=== PATIENT | female | born 1965 | race Caucasian/White ===

== ENCOUNTER → 2020-02-18 | Outpatient (CLI) | payer BC ==
[~2020-02-18] MED LIST: INVANZ INJ1 G/VIAL IV; PAXIL 10MG10 MG PO
== END ==
LOC: MC.RAD 01-21 15:45
DX: Z12.31 Encounter for screening mammogram for malignant neoplasm of breast (principal)

== ENCOUNTER → 2020-02-18 | Outpatient (CLI) | payer BC | LOC: COL.RAD 07:30 | DX: R94.5 Abnormal results of liver function studies (principal); Z90.49 Acquired absence of other specified parts of digestive tract ==

== ENCOUNTER → 2021-03-12 | Outpatient (CLI) | payer OTHER | LOC: MC.RAD 08:18 | DX: Z12.31 Encounter for screening mammogram for malignant neoplasm of breast (principal) ==

== ENCOUNTER → 2023-07-21 | Outpatient (CLI) | payer OTHER | LOC: COL.RAD 08:02 | DX: M51.34 Other intervertebral disc degeneration, thoracic region (principal); M47.816 Spondylosis without myelopathy or radiculopathy, lumbar region ==

== ENCOUNTER 2023-08-04 13:00 | Outpatient (RCR) | payer OTHER | END 2023-08-06 | disposition home or self-care (01) | LOC: PT.GENESIS | DX: M54.40 Lumbago with sciatica, unspecified side (principal) ==

== ENCOUNTER 2023-09-29 13:45 | Outpatient (RCR) | payer OTHER | END 2023-10-06 | LOC: PT.GENESIS | DX: M54.40 Lumbago with sciatica, unspecified side (principal) ==

== ENCOUNTER → 2024-02-09 | Outpatient (CLI) | payer OTHER ==
[2024-02-09 07:53] LABS: BASO # 0.1 K/mm3 (0.0-0.2); BASO % 1.4 % (0.0-2.0); EOS # 0.1 K/mm3 (0.0-0.7); EOS % 1.9 % (0.0-4.0); GRAN # 1.4 K/mm3 (1.4-6.5); HEMATOCRIT 37.2 % (37.0-47.0); HEMOGLOBIN 12.5 g/dl (12.5-16.0); LYMPH # 1.8 K/mm3 (1.2-3.4); LYMPH % 48.9 % (20.0-51.0); MEAN CELL VOLUME 93 fl (80.0-100.0); MEAN CORPUSCULAR HEMOGLOBIN 31 pg (27-31); MEAN CORPUSCULAR HGB CONC 34 g/dl (33.0-37.0); MEAN PLATELET VOLUME 11.2 fl (7.4-10.4); MONO # 0.3 K/mm3 (0.1-0.6); MONO % 7.8 % (1.7-9.3); PLATELET COUNT 183 K/mm3 (130-400); REDCELL DISTRIBUTION WIDTH-CV 12.3 % (11.5-14.5)
[2024-02-09 08:29] LABS: ALBUMIN 3.9 g/dL (3.4-4.8); BILIRUBIN,TOTAL 0.6 mg/dL (0.2-1.2); CALCIUM 9.8 mg/dL (8.4-10.2); CREATININE, serum 0.87 mg/dL (0.57-1.11); POTASSIUM 4.6 mEq/L (3.5-4.5); TOTAL PROTEIN 7.1 g/dl (6.2-8.1)
== END ==
LOC: COL.LAB 07:03
PROVIDERS: Family Medicine
DX: Z00.00 Encounter for general adult medical examination without abnormal findings (principal)

== ENCOUNTER 2024-02-26 08:23 | Day surgery (SDC) | payer OTHER ==
[~2024-02-26] VITALS: Ht 160 cm; Wt 52.8 kg
[~2024-02-26 08:23] MED LIST changes: +LR 1,000 ML IV SCH; +Ondansetron 4 MG/2 ML VIAL IV PRN
[2024-02-26] MEDS ORDERED: MIRTAZAPINE7.5 MG PO (09:16)
[2024-02-26] MEDS ORDERED: LIPITOR20 MG PO (09:16)
[2024-02-26] MEDS ORDERED: PAXIL 10MG10 MG PO (09:17)
[2024-02-26] MEDS ORDERED: PROLIA60 MG/ML SQ (09:18)
[2024-02-26] MEDS ORDERED: GAS RELIEF125 MG PO (09:19)
[2024-02-26] MEDS ORDERED: Lidocaine PF 2% (20 MG/ML) 5 ML VIAL ONE (09:22)
[2024-02-26] MEDS ORDERED: PRILOSEC 20MG20 MG PO (09:23)
[2024-02-26] MEDS ORDERED: TYLENOL 500MG500 MG PO (09:26)
[2024-02-26] MEDS ORDERED: MULTI VITAMINS1 TAB PO (09:27)
[2024-02-26] MEDS ORDERED: CHILDREN'S SLEEP1 MG PO (09:29)
[2024-02-26] MEDS ORDERED: CALCIUM 600MG+D1 TAB PO (09:29)
[2024-02-26 09:30] VITALS: BP 121/67; PULSE 106; TEMP 97.3
[2024-02-26 10:13] VITALS: TEMP 98
[2024-02-26 10:20] VITALS: BP 93/67; PULSE 70
[2024-02-26 10:35] VITALS: BP 112/72; PULSE 65
[2024-02-26 10:50] VITALS: BP 109/70; PULSE 61
--- NOTE | 2024-02-26 10:53 | NUR ---
1020 PATIENT RETURNS TO [facility] [place] VIA CART. PT AWAKE AND ALERT. RESPIRATIONS UNLABORED. AMBULATED TO RECLINER CHAIR WITH 2:1 SBA. PT DENIES NAUSEA OR ABDOMINAL PAIN. HOOKED UP TO MONITOR AND VS OBTAINED. CALL LIGHT AT SIDE AND PRESENT. 1025 PATIENT TOLERATING ICED TEA AND VANILLA PUDDING WITHOUT NAUSEA OR DIFFICULTY SWALLOWING. 1035 DR. GRECO IN ROOM SPEAKING WITH PATIENT. 1045 D/C INSTRUCTIONS REVIEWED WITH PATIENT. PT VERBALIZED UNDERSTANDING AND A COPY OF INSTRUCTIONS PROVIDED IN D/C FOLDER. 1055 PATIENT DRESSES SELF. 1115 PATIENT DISCHARGED FROM UNIT VIA W/C TO A PERSONAL VEHICLE. PT LEFT HOSPITAL IN STABLE CONDITION.
== END 2024-02-26 11:15 | disposition home or self-care (01) ==
LOC: SDCO 08:23
DX: K31.7 Polyp of stomach and duodenum (principal); K21.00 Gastro-esophageal reflux disease with esophagitis, without bleeding; K22.2 Esophageal obstruction; K29.51 Unspecified chronic gastritis with bleeding; K44.9 Diaphragmatic hernia without obstruction or gangrene; K92.1 Melena; K64.0 First degree hemorrhoids
CPT/HCPCS: C1726; J2704; J7120